=== PATIENT | female | born 1940 | race Caucasian/White ===

== ENCOUNTER 2018-09-25 21:07 | Observation (INO) ==
[2018-09-25] MEDS ORDERED: Isovue-370 500 ML BOTTLE IVP ONE (21:52)
[2018-09-25] MEDS ORDERED: Ondansetron 4 MG/2 ML VIAL IVP ONE (22:01)
[2018-09-25] MEDS ORDERED: *HR* FentaNYL (PF) 100 MCG/2 ML VIAL IVP ONE (22:01)
[2018-09-25] MEDS ORDERED: 0.9 % Sodium Chloride 1,000 ML IVC ONE (22:01)
[2018-09-25 22:05] LABS: Bilirubin,Urine Small (Negative); Blood,Urine Negative (Negative); Clarity,Urine Clear (Clear); Color,Urine Dark Yellow (Yellow); Glucose,Urine (UA) Normal (Normal); Ketones,Urine Trace mg/dL (Negative); Leukocyte Esterase,Urine Trace (Negative); Nitrite,Urine Negative (Negative); PH,Urine 6.5 pH Units (5.0-8.0); Protein,Urine Negative (Neg-Trace); Specific Gravity,Urine 1.022 (1.010-1.025); Urobilinogen,Urine Normal (Normal)
[2018-09-25 22:06] LABS: Bacteria,Urine None Seen per hpf (None-Few); Hyaline Casts,Urine None Seen per lpf (None-Few); RBC,Urine 0-3 per hpf (0-3); Squamous Epithelial Cell,Urine Many per lpf (None-Few); WBC,Urine 0-3 per hpf (0-3)
[2018-09-25 22:42] LABS: Basophils % 0.3 %; Hematocrit 40.9 % (35.3-44.9); Immature Granulocytes % 0.5 % (0-4); Lymphocytes % 6.8 %; Mean Corpuscular HGB Conc 34.2 g/dL (31.6-35.5); Mean Corpuscular Hemoglobin 30.7 pg (28.0-33.3); Mean Corpuscular Volume 89.7 fL (83.0-100.0); Mean Platelet Volume 8.5 fL (9.4-12.4); Monocytes # 0.7 K/mcL (0.0-1.3); Monocytes % 5.1 %; Neutrophils # 12.6 K/mcL (1.6-8.9); Platelet Count 357 K/mcL (140-400); Red Blood Count 4.56 M/mcL (3.82-4.97); Red Cell Distribution Width 13.4 % (11.5-14.5); Segmented Neutrophils % 87.3 %
--- NOTE | 2018-09-25 22:55 | Emergency Department Note ---
Disposition Clinical Impression: Ascites Qualifiers: Ascites type: other type Qualified Code(s): R18.8 - Other ascites Abdominal pain Qualifiers: Abdominal location: generalized Qualified Code(s): R10.84 - Generalized abdominal pain Disposition: Admitted As Inpatient Condition: Fair Forms: ED Satisfaction Letter, Work/School Release Time of Disposition: 00:24 Abdominal Pain HPI - General Chief Complaint: ED Abdominal Pain Stated Complaint: ABD Pain Time Seen by Provider: 09/25/18 21:41 Source: patient Mode of arrival: ambulatory Limitations: no limitations Nursing Notes Reviewed: Yes Vital Signs Reviewed: Yes - History of Present Illness HPI Narrative: 78-year-old female presented to the emergency department with right upper quadrant abdominal pain. Patient states partially 10 days ago she had a cholecystectomy she is not having pain prior to the surgery after surgery she was having horrible pain. His been seen multiple times by her primary care as well as urgent care they said they have not found anything. She was recently admitted approximately one week ago for this pain diagnosed with postoperative constipation told use MiraLAX and follow-up with them as needed. Patient states she still has tenderness 10 right upper quadrant pain nothing seems to make it better. They said he has been nauseous and has been vomiting up bilious nonbloody emesis. There is been no fevers. She did have urinary tract infecti on after the surgery the but took antibiotics and has sense relieved itself. Patient otherwise not having any other complaints at this time. She does note some mild chest pain and right shoulder pain but has been again since the surgery nothing is changed. There is no shortness of breath. Pain Scale: 10 - Related Data Home Medications Medication Instructions Recorded Confirmed Aspirin 81 mg PO DAILY 07/08/18 09/25/18 Potassium Chloride [Klor-Con] 20 meq PO DAILY 07/08/18 09/25/18 amLODIPine [Norvasc] 5 mg PO DAILY 07/08/18 09/25/18 Triamterene/HCTZ 37.5/25mg 1 tab PO DAILY 09/15/18 09/25/18 [Dyazide] hydrOXYzine pamoate [Hydroxyzine 25 mg PO HS 09/15/18 09/25/18 Pamoate] Calcium Carb/Mag Oxide/Zinc Ox 1 tab PO DAILY 09/20/18 09/25/18 [Lcckhmz-Ayclknima-Osiw Caplet] OxyCODONE/APAP 5/325 [Percocet 1 each PO Q6HR PRN 09/20/18 09/25/18 5/325 MG] Vitamin A 10,000 unit PO DAILY 09/20/18 09/25/18 Vitamin B Complex [B Complex] 1 tab PO DAILY 09/20/18 09/25/18 Previous Rx's Medication Instructions Recorded Cefdinir [Omnicef] 300 mg PO BID #8 capsule 09/21/18 Lovastatin [Mevacor] 40 mg PO HS #30 tablet 09/21/18 Phenazopyridine [Pyridium] 100 mg PO TID PRN #15 tablet 09/21/18 Polyethylene Glycol 3350 [MiraLAX] 17 gm PO DAILY #30 powd.pack 09/21/18 Allergies Allergy/AdvReac Type Severity Reaction Status Date / Time enalapril Allergy Hives Verified 09/25/18 22:31 prednisone AdvReac Palpitation Verified 09/25/18 22:31 s All systems ED: reviewed and negative except as stated. Review of Systems: As Per HPI Abdominal Pain PMH - Past Medical History Medical history: Reports: asthma, hypertension, renal disease Female Surgical History: Reports: cholecystectomy Psychiatric history: Reports: anxiety - Social History Smoking status: Never smoker Alcohol use: Reports: none Drug use: Reports: none Physical Exam - General Limitations: no limitations General appearance: alert, in no apparent distress - Head Head exam: atraumatic, normocephalic, normal inspection - Eye Eye exam: Present: normal appearance, PERRL, EOMI - ENT ENT exam: normal exam, normal oropharynx, mucous membranes moist - Neck Neck exam: Present: normal inspection, full ROM, trachea midline - Chest Chest inspection: Present: normal inspection, symmetric chest wall rise - Respiratory Respiratory exam: Present: normal lung sounds bilaterally - Cardiovascular Cardiovascular exam: Present: regular rate, normal rhythm, normal heart sounds - Abdominal Exam Abdominal exam: Present: soft, tenderness, normal bowel sounds. Absent: distention, guarding, rebound, rigidity Abdominal tenderness: Present: RUQ, diffuse, moderate - Extremities Exam Extremities exam: Present: normal inspection, full ROM. Absent: tenderness, pedal edema - Back Exam Back exam: Present: normal inspection, full ROM. Absent: tenderness, CVA tenderness (R), CVA tenderness (L) - Neurological Exam Neurological exam: Present: alert, oriented X3 - Skin Skin exam: Present: warm, dry, intact, normal color Course Course Narrative: We have basic labs. CBC BMP, troponin, lactate, lipase were all ordered. Also ordered troponin and EKG and chest x-ray. Also will get CT abdomen and pelvis with contrast for further evaluation the abdomen. We will give pain medication of IV fluids. Patient okay with that plan. Vital Signs Temperature 98.2 F 09/25/18 21:34 Pulse Rate 82 09/25/18 21:34 Respiratory Rate 20 09/25/18 21:34 Blood Pressure 163/73 09/25/18 21:34 O2 Sat by Pulse Oximetry 96 09/25/18 21:34 Temperature 98.2 F 09/25/18 21:34 Pulse Rate 73 09/25/18 22:36 Respiratory Rate 20 09/25/18 22:36 Blood Pressure 128/62 09/25/18 22:36 O2 Sat by Pulse Oximetry 94 09/25/18 22:36 Oxygen Delivery Oxygen Delivery Room Air Abdominal Pain - MDM Narrative Medical decision making narrative: Patient still having pain while here. Labs came back with elevated alkaline phosphatase as well as elevated bilirubin and a leukocytosis with left shift. Patient is not having any fevers. Urinalysis was otherwise normal. CT did show ascites in the abdomen unknown whether or not this could be a bile leak as a is increased from previous scan done 09/19 and also more seen then 09/16. Due to this finding I felt that consult and was surgery was necessary. At this time I spoke with Dr. Valladares the on-call surgeon who recommended admission to their service. Patient is admitted to the surgical service and stable condition. Chest X-Ray 09/25/18 21:54 IMPRESSION: No acute cardiopulmonary process D/ / Shantanu Bob / Shantanu Bob Interpreting Provider: Shantanu Bob - Medical Records Medical records reviewed: Yes I reviewed the patient's medical records. - Lab Data Lab results reviewed: Yes I reviewed the patient's lab results. Result diagrams: 09/25/18 22:23 09/25/18 22:23 Lab Results 09/25/18 09/25/18 09/25/18 Range/Units 21:56 22:23 22:23 WBC 14.4 H (4.3-11.1) K/mcL RBC 4.56 (3.82-4.97) M/mcL Hgb 14.0 (11.5-15.4) g/dL Hct 40.9 (35.3-44.9) % MCV 89.7 (83.0-100.0) fL MCH 30.7 (28.0-33.3) pg MCHC 34.2 (31.6-35.5) g/dL RDW 13.4 (11.5-14.5) % Plt Count 357 (140-400) K/mcL MPV 8.5 L (9.4-12.4) fL Immature Gran % 0.5 (0-4) % Seg Neutrophils % 87.3 % Lymphocytes % 6.8 % Monocytes % 5.1 % Eosinophils % 0.0 % Basophils % 0.3 % Neutrophils # 12.6 H (1.6-8.9) K/mcL Lymphocytes # 1.0 (0.6-4.6) K/mcL Monocytes # 0.7 (0.0-1.3) K/mcL Eosinophils # 0.0 (0.0-0.6) K/mcL Basophils # 0.0 (0.0-0.2) K/mcL Sodium 132 L (136-145) mEq/L Potassium 4.2 (3.5-5.1) mEq/L Chloride 97 L (98-107) mEq/L Carbon Dioxide 25 (23-29) mEq/L BUN 20 (8-23) mg/dL Creatinine 0.75 (0.60-1.20) mg/dL Est GFR ( Amer) > 60 (> 60) Est GFR (Non-Af Amer) > 60 (> 60) BUN/Creatinine Ratio 27 H (6-26) Glucose 163 H (70-105) mg/dL Calculated Osmolality 280 (280-300) Lactic Acid (0.5-2.2) mmol/L Calcium 9.8 (8.6-10.3) mg/dL Total Bilirubin 1.7 H (0.3-1.0) mg/dL AST 34 (13-39) Units/L ALT 39 (7-52) Units/L Alkaline Phosphatase 306 H (34-104) Units/L Troponin I < 0.03 (< 0.04) ng/mL Serum Total Protein 6.8 (6.4-8.9) g/dL Albumin 3.7 (3.5-5.7) g/dL Globulin 3.1 (2.4-3.5) g/dL Albumin/Globulin Ratio 1.2 (1.1-2.2) Lipase 25 (11-82) Units/L Urine Color Dark Yellow (Yellow) Urine Clarity Clear (Clear) Urine pH 6.5 (5.0-8.0) pH Units Ur Specific [place] 1.022 (1.010-1.025) Urine Protein Negative (Neg-Trace) mg/dL Urine Glucose (UA) Normal (Normal) mg/dL Urine Ketones Trace H (Negative) mg/dL Urine Blood Negative (Negative) Urine Nitrite Negative (Negative) Urine Bilirubin Small H (Negative) Urine Urobilinogen Normal (Normal) mg/dL Ur Leukocyte Esterase Trace H (Negative) Urine Microscopic RBC 0-3 (0-3) per hpf Urine Microscopic WBC 0-3 (0-3) per hpf Ur Squamous Epith Cells Many H (None-Few) per lpf Urine Bacteria None Seen (None-Few) per hpf Hyaline Casts None Seen (None-Few) per lpf Ur Culture Indicated? NO. A (NO) 09/25/18 Range/Units 22:23 WBC (4.3-11.1) K/mcL RBC (3.82-4.97) M/mcL Hgb (11.5-15.4) g/dL Hct (35.3-44.9) % MCV (83.0-100.0) fL MCH (28.0-33.3) pg MCHC (31.6-35.5) g/dL RDW (11.5-14.5) % Plt Count (140-400) K/mcL MPV (9.4-12.4) fL Immature Gran % (0-4) % Seg Neutrophils % % Lymphocytes % % Monocytes % % Eosinophils % % Basophils % % Neutrophils # (1.6-8.9) K/mcL Lymphocytes # (0.6-4.6) K/mcL Monocytes # (0.0-1.3) K/mcL Eosinophils # (0.0-0.6) K/mcL Basophils # (0.0-0.2) K/mcL Sodium (136-145) mEq/L Potassium (3.5-5.1) mEq/L Chloride (98-107) mEq/L Carbon Dioxide (23-29) mEq/L BUN (8-23) mg/dL Creatinine (0.60-1.20) mg/dL Est GFR ( Amer) (> 60) Est GFR (Non-Af Amer) (> 60) BUN/Creatinine Ratio (6-26) Glucose (70-105) mg/dL Calculated Osmolality (280-300) Lactic Acid 0.8 (0.5-2.2) mmol/L Calcium (8.6-10.3) mg/dL Total Bilirubin (0.3-1.0) mg/dL AST (13-39) Units/L ALT (7-52) Units/L Alkaline Phosphatase (34-104) Units/L Troponin I (< 0.04) ng/mL Serum Total Protein (6.4-8.9) g/dL Albumin (3.5-5.7) g/dL Globulin (2.4-3.5) g/dL Albumin/Globulin Ratio (1.1-2.2) Lipase (11-82) Units/L Urine Color (Yellow) Urine Clarity (Clear) Urine pH (5.0-8.0) pH Units Ur Specific [place] (1.010-1.025) Urine Protein (Neg-Trace) mg/dL Urine Glucose (UA) (Normal) mg/dL Urine Ketones (Negative) mg/dL Urine Blood (Negative) Urine Nitrite (Negative) Urine Bilirubin (Negative) Urine Urobilinogen (Normal) mg/dL Ur Leukocyte Esterase (Negative) Urine Microscopic RBC (0-3) per hpf Urine Microscopic WBC (0-3) per hpf Ur Squamous Epith Cells (None-Few) per lpf Urine Bacteria (None-Few) per hpf Hyaline Casts (None-Few) per lpf Ur Culture Indicated? (NO) - Radiology Data Radiology results reviewed: Yes I reviewed the patient's radiology results. - EKG Data EKG attestation: Yes I reviewed and interpreted this EKG. EKG results narrative: EKG done at 20 20 a review by myself and attending shows sinus rhythm at a rate 78, PA interval 164, QRS 97, QTC 424. There is no acute ST changes no acute T- wave changes no other signs of ischemia. No signs of hypertrophy, heart rate, heart block. No WPW/Brugada/HOCM. EKG unchanged when compared with old one done 09/20/18
[2018-09-25 22:58] LABS: Alanine Aminotransferase 39 Units/L (7-52); Albumin 3.7 g/dL (3.5-5.7); Albumin/Globulin Ratio 1.2 (1.1-2.2); Alkaline Phosphatase 306 Units/L (34-104); Aspartate Amino Transferase 34 Units/L (13-39); BUN/Creatinine Ratio 27 (6-26); Bilirubin,Total 1.7 mg/dL (0.3-1.0); Blood Urea Nitrogen 20 mg/dL (8-23); Calcium 9.8 mg/dL (8.6-10.3); Carbon Dioxide 25 mEq/L (23-29); Chloride 97 mEq/L (98-107); Globulin 3.1 g/dL (2.4-3.5); Glucose 163 mg/dL (70-105); Lipase 25 Units/L (11-82); Osmolality,Calculated 280 (280-300); Potassium 4.2 mEq/L (3.5-5.1); Sodium 132 mEq/L (136-145); Total Protein 6.8 g/dL (6.4-8.9); Troponin I < 0.03 ng/mL (< 0.04); eGFR For Non-African Americans > 60 (> 60)
[2018-09-25] MEDS ORDERED: *HR* HYDROmorphone (PF) 1 MG/ML SYRINGE IVP ONE (23:26)
--- NOTE | 2018-09-26 00:28 | Emergency Department Note ---
Disposition Clinical Impression: Ascites Qualifiers: Ascites type: other type Qualified Code(s): R18.8 - Other ascites Abdominal pain Qualifiers: Abdominal location: generalized Qualified Code(s): R10.84 - Generalized abdominal pain Disposition: Admitted As Inpatient Condition: Fair General Adult HPI - General Chief complaint: ED Abdominal Pain Stated complaint: ABD Pain Time Seen by Provider: 09/25/18 21:41 Source: patient Mode of arrival: ambulatory Limitations: no limitations Nursing Notes Reviewed: Yes Vital Signs Reviewed: Yes - History of Present Illness Pain Scale: 10 - Related Data Home Medications Medication Instructions Recorded Confirmed Aspirin 81 mg PO DAILY 07/08/18 09/25/18 Potassium Chloride [Klor-Con] 20 meq PO DAILY 07/08/18 09/25/18 amLODIPine [Norvasc] 5 mg PO DAILY 07/08/18 09/25/18 Triamterene/HCTZ 37.5/25mg 1 tab PO DAILY 09/15/18 09/25/18 [Dyazide] hydrOXYzine pamoate [Hydroxyzine 25 mg PO HS 09/15/18 09/25/18 Pamoate] Calcium Carb/Mag Oxide/Zinc Ox 1 tab PO DAILY 09/20/18 09/25/18 [Sddtiwx-Gwocyvcdl-Fpoe Caplet] OxyCODONE/APAP 5/325 [Percocet 1 each PO Q6HR PRN 09/20/18 09/25/18 5/325 MG] Vitamin A 10,000 unit PO DAILY 09/20/18 09/25/18 Vitamin B Complex [B Complex] 1 tab PO DAILY 09/20/18 09/25/18 Previous Rx's Medication Instructions Recorded Cefdinir [Omnicef] 300 mg PO BID #8 capsule 09/21/18 Lovastatin [Mevacor] 40 mg PO HS #30 tablet 09/21/18 Phenazopyridine [Pyridium] 100 mg PO TID PRN #15 tablet 09/21/18 Polyethylene Glycol 3350 [MiraLAX] 17 gm PO DAILY #30 powd.pack 09/21/18 Allergies Allergy/AdvReac Type Severity Reaction Status Date / Time enalapril Allergy Hives Verified 09/25/18 22:31 prednisone AdvReac Palpitation Verified 09/25/18 22:31 s Past Medical History - Past Medical History Medical history: Reports: asthma, hypertension, renal disease Psychiatric history: Reports: anxiety - Social History Smoking Status: Never smoker Smokeless Tobacco Status: No Alcohol use: Reports: none Drug use: Reports: none Physical Exam - General Limitations: no limitations General appearance: alert, in no apparent distress Course Vital Signs Temperature 98.2 F 09/25/18 21:34 Pulse Rate 82 09/25/18 21:34 Respiratory Rate 20 09/25/18 21:34 Blood Pressure 163/73 09/25/18 21:34 O2 Sat by Pulse Oximetry 96 09/25/18 21:34 Temperature 98.2 F 09/25/18 21:34 Pulse Rate 92 09/26/18 00:00 Respiratory Rate 20 09/26/18 00:00 Blood Pressure 153/72 09/26/18 00:00 O2 Sat by Pulse Oximetry 93 09/26/18 00:00 Oxygen Delivery Oxygen Delivery Room Air Medical Decision Making - Medical Records Medical records reviewed: Yes I reviewed the patient's medical records. - Lab Data Lab results reviewed: Yes I reviewed the patient's lab results. Result diagrams: 09/25/18 22:23 09/25/18 22:23 Lab Results 09/25/18 09/25/18 09/25/18 Range/Units 21:56 22:23 22:23 WBC 14.4 H (4.3-11.1) K/mcL RBC 4.56 (3.82-4.97) M/mcL Hgb 14.0 (11.5-15.4) g/dL Hct 40.9 (35.3-44.9) % MCV 89.7 (83.0-100.0) fL MCH 30.7 (28.0-33.3) pg MCHC 34.2 (31.6-35.5) g/dL RDW 13.4 (11.5-14.5) % Plt Count 357 (140-400) K/mcL MPV 8.5 L (9.4-12.4) fL Immature Gran % 0.5 (0-4) % Seg Neutrophils % 87.3 % Lymphocytes % 6.8 % Monocytes % 5.1 % Eosinophils % 0.0 % Basophils % 0.3 % Neutrophils # 12.6 H (1.6-8.9) K/mcL Lymphocytes # 1.0 (0.6-4.6) K/mcL Monocytes # 0.7 (0.0-1.3) K/mcL Eosinophils # 0.0 (0.0-0.6) K/mcL Basophils # 0.0 (0.0-0.2) K/mcL Sodium 132 L (136-145) mEq/L Potassium 4.2 (3.5-5.1) mEq/L Chloride 97 L (98-107) mEq/L Carbon Dioxide 25 (23-29) mEq/L BUN 20 (8-23) mg/dL Creatinine 0.75 (0.60-1.20) mg/dL Est GFR ( Amer) > 60 (> 60) Est GFR (Non-Af Amer) > 60 (> 60) BUN/Creatinine Ratio 27 H (6-26) Glucose 163 H (70-105) mg/dL Calculated Osmolality 280 (280-300) Lactic Acid (0.5-2.2) mmol/L Calcium 9.8 (8.6-10.3) mg/dL Total Bilirubin 1.7 H (0.3-1.0) mg/dL AST 34 (13-39) Units/L ALT 39 (7-52) Units/L Alkaline Phosphatase 306 H (34-104) Units/L Troponin I < 0.03 (< 0.04) ng/mL Serum Total Protein 6.8 (6.4-8.9) g/dL Albumin 3.7 (3.5-5.7) g/dL Globulin 3.1 (2.4-3.5) g/dL Albumin/Globulin Ratio 1.2 (1.1-2.2) Lipase 25 (11-82) Units/L Urine Color Dark Yellow (Yellow) Urine Clarity Clear (Clear) Urine pH 6.5 (5.0-8.0) pH Units Ur Specific [place] 1.022 (1.010-1.025) Urine Protein Negative (Neg-Trace) mg/dL Urine Glucose (UA) Normal (Normal) mg/dL Urine Ketones Trace H (Negative) mg/dL Urine Blood Negative (Negative) Urine Nitrite Negative (Negative) Urine Bilirubin Small H (Negative) Urine Urobilinogen Normal (Normal) mg/dL Ur Leukocyte Esterase Trace H (Negative) Urine Microscopic RBC 0-3 (0-3) per hpf Urine Microscopic WBC 0-3 (0-3) per hpf Ur Squamous Epith Cells Many H (None-Few) per lpf Urine Bacteria None Seen (None-Few) per hpf Hyaline Casts None Seen (None-Few) per lpf Ur Culture Indicated? NO. A (NO) 09/25/18 Range/Units 22:23 WBC (4.3-11.1) K/mcL RBC (3.82-4.97) M/mcL Hgb (11.5-15.4) g/dL Hct (35.3-44.9) % MCV (83.0-100.0) fL MCH (28.0-33.3) pg MCHC (31.6-35.5) g/dL RDW (11.5-14.5) % Plt Count (140-400) K/mcL MPV (9.4-12.4) fL Immature Gran % (0-4) % Seg Neutrophils % % Lymphocytes % % Monocytes % % Eosinophils % % Basophils % % Neutrophils # (1.6-8.9) K/mcL Lymphocytes # (0.6-4.6) K/mcL Monocytes # (0.0-1.3) K/mcL Eosinophils # (0.0-0.6) K/mcL Basophils # (0.0-0.2) K/mcL Sodium (136-145) mEq/L Potassium (3.5-5.1) mEq/L Chloride (98-107) mEq/L Carbon Dioxide (23-29) mEq/L BUN (8-23) mg/dL Creatinine (0.60-1.20) mg/dL Est GFR ( Amer) (> 60) Est GFR (Non-Af Amer) (> 60) BUN/Creatinine Ratio (6-26) Glucose (70-105) mg/dL Calculated Osmolality (280-300) Lactic Acid 0.8 (0.5-2.2) mmol/L Calcium (8.6-10.3) mg/dL Total Bilirubin (0.3-1.0) mg/dL AST (13-39) Units/L ALT (7-52) Units/L Alkaline Phosphatase (34-104) Units/L Troponin I (< 0.04) ng/mL Serum Total Protein (6.4-8.9) g/dL Albumin (3.5-5.7) g/dL Globulin (2.4-3.5) g/dL Albumin/Globulin Ratio (1.1-2.2) Lipase (11-82) Units/L Urine Color (Yellow) Urine Clarity (Clear) Urine pH (5.0-8.0) pH Units Ur Specific [place] (1.010-1.025) Urine Protein (Neg-Trace) mg/dL Urine Glucose (UA) (Normal) mg/dL Urine Ketones (Negative) mg/dL Urine Blood (Negative) Urine Nitrite (Negative) Urine Bilirubin (Negative) Urine Urobilinogen (Normal) mg/dL Ur Leukocyte Esterase (Negative) Urine Microscopic RBC (0-3) per hpf Urine Microscopic WBC (0-3) per hpf Ur Squamous Epith Cells (None-Few) per lpf Urine Bacteria (None-Few) per hpf Hyaline Casts (None-Few) per lpf Ur Culture Indicated? (NO) - Radiology Data Radiology results reviewed: Yes I reviewed the patient's radiology results. Chest X-Ray 09/25/18 21:54 IMPRESSION: No acute cardiopulmonary process D/ / Shantanu Bob / Shantanu Bob Interpreting Provider: Shantanu Bob Chest X-Ray 09/25/18 21:54 IMPRESSION: No acute cardiopulmonary process D/ / Shantanu Bob / Shantanu Bob Interpreting Provider: Shantanu Bob For some reason the patient's CT report will not transferred to this note. The report was reviewed by me. - EKG Data EKG #1 EKG attestation: Yes I reviewed and interpreted this EKG. EKG results narrative: EKG shows normal sinus rhythm with ventricular rate of 78. No ST segment elevation or depression. No arrhythmia or ectopy. Normal EKG. Attestation Statement - Attestation Attestation: I, Ismael Self MD, personally evaluated this patient and discussed their management with the resident physician. I reviewed the resident's note and agree with the documented findings, medical decision making, and plan of care. 78-year-old female who had a laparoscopic cholecystectomy 10 days ago presents to the emergency department with a complaint of severe upper abdominal pain ever since she had the surgery. The surgery was done as an outpatient. She was seen at [place] emergency department during the night the night of the surgery. She apparently was seen there on another visit and was seen here within the past week. She was admitted to the hospital at that time. She states it told her she was constipated. She took some laxatives and has had a bowel movement but states it did not affect the pain and she is back tonight complaining of severe progressively worsening upper abdominal pain. On examination patient is a well-developed well-nourished elderly female in no acute distress. She is alert and oriented 3. There is no cyanosis or diaphoresis. Breath sounds are clear and equal bilaterally. Heart regular rate and rhythm. Abdomen is soft with present bowel sounds. There is moderate upper abdominal tenderness. Labs reviewed. EKG normal. Chest x-ray negative. CT the abdomen and pelvis shows increased abdominal and pelvic ascites compared to previous scan, consider bile leak. The surgeon security operations manager, Dr. Valladares, was consulted and accepted admission of the patient to the surgical service.
[2018-09-26] MEDS: Piperacillin/Tazobactam 3.375 GM in 0.9 % Sodium Chloride Mini Bag 100 ML IVPB SCH ×3 (01:38→17:16)
[2018-09-26] MEDS: OXYCODONE Oral CONC 10 MG/0.5 ML ORAL.SYG SL PRN ×3 (01:42→10:13)
[2018-09-26] MEDS: Ondansetron 4 MG/2 ML VIAL IVP PRN ×2 (01:43→10:14)
[2018-09-26] MEDS: 0.9 % Sodium Chloride 1,000 ML IVC SCH ×2 (01:43→17:17)
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
[2018-09-26] MEDS ORDERED: Naloxone 0.4 MG/ML INJ IVP PRN ×2 (09:49→15:47)
--- NOTE | 2018-09-26 13:17 | Anesthesia Evaluation PreOp ---
Date of Encounter: 09/26/18 Time of Encounter: 13:17 - Past History Planned Operation: Abdominal washout re: Bile leak POD#11 Cardiac History: HTN, Hyperlipidemia Pulmonary History: Asthma OFFICE MESSENGER HELPER History: Denies Any Significant HX Other Medical History: Thyroid (Hypothyroidism DENIES) Anesthesia History: No Prior Anesthetic Complications, Past Anesthesia (Lap Debra 09/15/2018) Alcohol Use: none Drug use: none Medications and Allergies Aspirin 81 mg PO DAILY 07/08/18 [History] Potassium Chloride [Klor-Con] 20 meq PO DAILY 07/08/18 [History] amLODIPine [Norvasc] 5 mg PO DAILY 07/08/18 [History] Triamterene/HCTZ 37.5/25mg [Dyazide] 1 tab PO DAILY 09/15/18 [History] hydrOXYzine pamoate [Hydroxyzine Pamoate] 25 mg PO HS 09/15/18 [History] Calcium Carb/Mag Oxide/Zinc Ox [Rglgxdj-Cqjtrjqku-Bxup Caplet] 1 tab PO DAILY 09/20/18 [History] Vitamin A 10,000 unit PO DAILY 09/20/18 [History] Vitamin B Complex [B Complex] 1 tab PO DAILY 09/20/18 [History] Lovastatin [Mevacor] 40 mg PO HS #30 tablet 09/21/18 [Rx] Phenazopyridine [Pyridium] 100 mg PO TID PRN #15 tablet 09/21/18 [Rx] Polyethylene Glycol 3350 [MiraLAX] 17 gm PO DAILY #30 powd.pack 09/21/18 [Rx] Hydrocodone/Acetaminophen [[place] 5-325 Tablet] 1 tab PO Q4H 09/26/18 [History] Allergy/AdvReac Type Severity Reaction Status Date / Time enalapril Allergy Hives Verified 09/25/18 22:31 prednisone AdvReac Palpitation Verified 09/25/18 22:31 s - Meds/Allergy Pre-op Review Medications Reviewed: Yes Allergies Reviewed: Yes Beta Blockers on Current Med List: No Anesthesia Results - Labs 09/25/18 22:23 09/25/18 22:23 ECHO 09/20/2018 EV/EV echocardiogram Impressions: LVEF 60-65%. Normal LV chamber size, wall thickness and function. Mild left ventricular diastolic dysfunction. Normal right ventricular structure and function. No evidence of pulmonary hypertension. No significant valvular dysfunction. Left Ventricular Wall Motion: Rest Echo Findings All wall segments showed normal motion. - Imaging EKG: pending Anesthesia Exam Vital Signs Temp Pulse Resp BP Pulse Ox 09/26/18 11:14 98.1 F 75 16 146/71 95 09/26/18 09:10 98.2 F 75 18 150/75 95 09/26/18 03:00 97.7 F 72 16 162/73 95 09/26/18 00:00 92 20 153/72 93 09/25/18 22:36 73 20 128/62 94 09/25/18 22:34 93 09/25/18 21:34 98.2 F 82 20 163/73 96 Intake and Output 09/25/18 09/26/18 09/26/18 23:59 07:59 15:59 Intake Total 1100 / 1100 Output Total 0 / 150 150 / 150 Balance 1100 / 950 -150 / 950 Intake: IV Fluids 1100 / 1100 0.9 % Sodium Chloride 1,000 ML 1000 / 1000 @ 999 mls/hr IVC .Q1H1M ONE Rx# :[id number] Zosyn 3.375 GM In 0.9 % Sodium 100 / 100 Chloride (Mini-Bag +) 100 ML @ 25 mls/hr IVPB Q6H MARCELLA Rx#: [id number] Oral 0 / 0 Output: Urine 0 / 150 150 / 150 Other: Stool Characteristics Normal for Patient Stool Color Brown # Voids 1 # Bowel Movements 0 0 Weight 69.853 kg Blood Glucose* 112 103 Height: 5'7" Weight: 154# BMI = 24 NPO (# of Hours): MNOc - HEENT Pupil (Motor): Pupils equal, EOMI Mallampati: II Teeth: Edentulous (upper) Oral Opening: Greater than 3 - OFFICE MESSENGER HELPER LOC: Oriented OFFICE MESSENGER HELPER Motor: Normal RUE, Normal LUE, Normal RLE, Normal LLE, Normal Face OFFICE MESSENGER HELPER Sensory: Normal: RUE, LUE, RLE, LLE, Face - Cardiac Rhythm: Regular Murmur: None - Pulmonary Breath Sounds: bilateral Clear Respiratory Effort: Symmetrical Anesthesia Assess/Plan ASA Score: 3 Level of consciousness: Cooperative, Oriented, Tranquil Anesthetic Plan: General Monitoring Plan: Standard Monitors Anes Supervising Prov Stmt: Pt seen/evaluated, R&B Discussed questions answered and consent obtained. Shiloh Roa MD
[2018-09-26] MEDS ORDERED: CefOXitin 1,000 MG VIAL ONE ×2 (13:36→14:45)
[2018-09-26] MEDS ORDERED: Acetaminophen IV 1,000 MG/100 ML INFUS..BTL ONE (13:41)
[2018-09-26] MEDS ORDERED: Famotidine 20 MG/2 ML VIAL ONE (13:41)
[2018-09-26] MEDS ORDERED: *HR* OxyCODONE Immed Rel 5 MG TABLET PO PRN (13:43)
[2018-09-26] MEDS ORDERED: *HR* Promethazine 25 MG/ML VIAL IVP PRN (13:43)
[2018-09-26] MEDS ORDERED: *HR* HYDROmorphone (PF) 1 MG/ML SYRINGE IVP PRN (13:43)
[2018-09-26] MEDS ORDERED: *HR* Labetalol 20 MG/4 ML SYRINGE IVP PRN ×2 (13:43→15:47)
[2018-09-26] MEDS ORDERED: *HR* HYDROmorphone 2 MG TABLET PO PRN (13:43)
[2018-09-26] MEDS ORDERED: *HR* Rocuronium Bromide 50 MG/5 ML VIAL ONE (14:28)
[2018-09-26] MEDS ORDERED: Lidocaine -MPF 2% 2 ML VIAL ONE (14:28)
[2018-09-26] MEDS ORDERED: Dexamethasone 4 MG/ML VIAL ONE (14:28)
[2018-09-26] MEDS ORDERED: Lidocaine -MPF 4% 5 ML AMPUL ONE (14:28)
[2018-09-26] MEDS ORDERED: Ondansetron 4 MG/2 ML VIAL ONE (14:28)
[2018-09-26] MEDS ORDERED: *HR* Propofol 200 MG/20 ML VIAL IVP ONE (14:28)
[2018-09-26] MEDS ORDERED: *HR* FentaNYL (PF) 100 MCG/2 ML VIAL ONE ×2 (14:28)
--- NOTE | 2018-09-26 15:14 | Operative Note ---
Date of procedure: 09/26/18 Pre-op diagnosis: Bile ascites Post-op diagnosis: same Procedure: #1 laparoscopic drainage of bile ascites with drain placement #2 closure of bile leak Anesthesia: DINESH Surgeon: Oziel Valladares Was there an child center assistant present: No Estimated blood loss (cc): 20 Specimen: None Condition: stable Disposition: PACU Procedure in Detail: After informed consent the patients taking major operative suite placed in supine position given adequate general endotracheal anesthesia. The abdomen is prepped and draped in sterile fashion utilizing ChloraPrep standard draping techniques. Timeout taken and the patient is identified. I made a vertical midline incision below the umbilicus and dissected down the level of fascia. The abdominal cavity visually and placed a Bloom trocar. Camera was placed into the abdomen it was immediately apparent that the patient had bile peritonitis and bile ascites. I placed an 11 trocar in the subxiphoid area and a 5 mm trocar in the right midabdomen. I suctioned 980 mL of bile from the abdomen. Once this was done I was able to dissected the acute inflammatory changes from the gallbladder fossa for cholecystectomy had performed 11 days ago. I was able to identify the cystic duct stump. This was secured with surgical clips. I was able to identify the cystic artery. This was secured with surgical clips. I was able to identify the area of bile leak. This was in the distal gallbladder fossa bed near the edge of the liver. There was clearly a leak from a very superficial block. I used electrocautery to circumferentially coagulate the tissue around the area of leak to contract the collagen fibers. This worked very well and immediately stop the bile leak. I irrigated all 4 quadrants of the abdomen with 2 L of antibiotic containing solution. All fluid was suctioned free the abdomen. I placed a #10 Masood- Lovell drain in the gallbladder fossa. There was no evidence of bile leak at the end of the procedure. Patient tolerated the procedure very well fascia was closed with 0 Nurolon and the skin was closed with skin glenys. The peritoneal fluid was turbid. It was unclear whether this was contaminated. I made this a class III wound. She will be maintained on IV antibiotics.
[2018-09-26] MEDS ORDERED: Ringers Solution, Lactated 1,000 ML ONE (15:31)
[2018-09-26] MEDS ORDERED: Ondansetron 4 MG/2 ML VIAL IVP PRN (15:47)
[2018-09-26] MEDS ORDERED: OXYCODONE Oral CONC 10 MG/0.5 ML ORAL.SYG SL PRN (15:47)
[2018-09-26] MEDS ORDERED: Piperacillin/Tazobactam 3.375 GM in 0.9 % Sodium Chloride Mini Bag 100 ML IVPB SCH (16:00)
--- NOTE | 2018-09-26 16:14 | Anesthesia Evaluation Post Op ---
Date of Encounter: 09/26/18 Time of Encounter: 15:36 - Vital Signs Vital Signs: Vital Signs Temp Pulse Resp BP Pulse Ox 09/26/18 15:41 99.3 F 72 13 141/57 94 09/26/18 15:31 75 17 138/60 96 09/26/18 15:21 77 12 135/57 95 09/26/18 15:11 98.8 F 72 12 144/52 97 09/26/18 11:14 98.1 F 75 16 146/71 95 09/26/18 09:10 98.2 F 75 18 150/75 95 09/26/18 03:00 97.7 F 72 16 162/73 95 09/26/18 00:00 92 20 153/72 93 09/25/18 22:36 73 20 128/62 94 09/25/18 22:34 93 09/25/18 21:34 98.2 F 82 20 163/73 96 Intake and Output 09/26/18 09/26/18 09/26/18 07:59 15:59 23:59 Intake Total 1100 / 1100 Output Total 0 / 1205 1205 / 1205 Balance 1100 / -105 -1205 / -105 Intake: IV Fluids 1100 / 1100 0.9 % Sodium Chloride 1,000 ML 1000 / 1000 @ 999 mls/hr IVC .Q1H1M ONE Rx# :[id number] Zosyn 3.375 GM In 0.9 % Sodium 100 / 100 Chloride (Mini-Bag +) 100 ML @ 25 mls/hr IVPB Q6H MARCELLA Rx#: [id number] Oral 0 / 0 Output: Urine 0 / 150 150 / 150 Estimated Blood Loss 25 / 25 Wound Drainage 1030 / 1030 Other: Meal npo # Voids 1 # Bowel Movements 0 0 Blood Glucose* 112 103 - Lungs Lungs: Clear Ascult./Percussion - Airway Airway: Non-obstructed - Cardiovascular Regular Rate - Mental Status Mental Status: Alert & Oriented, Answers Appropriately - Pain Pain Scale: 0 Pain Scale used: Numeric (1 - 10) - Nausea Vomiting Nausea Vomiting: Not Present - Hydration Hydration: Ice chips - Discharge PostOp Status: Transfer Patient to floor Anes Supervising Prov Stmt: Pt seen/evaluated, VSS and has met criteria for discharge to floor. - MD Crispin
--- NOTE | 2018-09-26 16:48 | Electrocardiograph Report ---
[place] [id number] Test Date: 2018-09-19 Pat Name: Gale Ferrari Department: EXAM3 Room: 3A11 Gender: F Gas Tester: : 1940 Requested By: Chilo Yan Order Number: [id number] Reading MD: Steve Thompson Measurements Intervals [place] Rate: 75 P: 63 LA: 152 QRS: 26 QRSD: 98 T: 39 QT: 381 QTc: 426 Interpretive Statements Sinus rhythm RSR' in V1 or V2, probably normal variant Electronically Signed On 09-26-2018 16:47:00 EDT by Steve Thompson
[2018-09-26] MEDS: hydrOXYzine pamoate 25 MG CAPSULE PO SCH (20:54)
[2018-09-27] MEDS: Piperacillin/Tazobactam 3.375 GM in 0.9 % Sodium Chloride Mini Bag 100 ML IVPB SCH ×3 (01:19→17:08)
[2018-09-27] MEDS: 0.9 % Sodium Chloride 1,000 ML IVC SCH ×2 (06:22→19:39)
--- NOTE | 2018-09-27 07:17 | AcuteCareSurgery Progress Note ---
<Paco Smith - Last Filed: 09/27/18 09:47> Date of Encounter: 09/27/18 Time of Encounter: 07:17 - Assessment and Plan (1) Postoperative bile leak Current Visit: Yes Status: Acute Ms. Ferrari is a 78 year old female with past medical history significant for hypertension, arthritis, hypothyroidism who recently underwent laparoscopic cholecystectomy postop day #12 who presents again today complaining of right upper quadrant abdominal pain. - No sharp, crampy, right upper quadrant abdominal pain that has persisted postoperatively since day after surgery. Has progressively worsened. Associated with nausea and vomiting. - Diffuse tenderness to palpation on exam. Guarding present. Right upper quadrant tenderness specifically. No rebound tenderness, rigidity. Bowel sounds present - Leukocytosis = 14.4. ALP = 307, T bili = 1.7 - CT of abdomen and pelvis with contrast: Persistent abdominal and pelvic ascites slightly increased in amount compared to prior. Sterility of the fluid is indeterminate. Consider bile leak. Loculated areas of fluid in the mesentery could represent early infectious change - Hepatobiliary scan: Bile leak with some mild distention of the intrahepatic biliary ductal system PLAN: Patient is postoperative day #1 status post left upper drainage of bile ascites and closure of bile leak. She is progressing appropriately postoperatively - Advance diet as tolerated - Continue IV pain and nausea control - Monitor for fevers or worsening leukocytosis. Additionally monitor for continuing abdominal pain, nausea, vomiting. - Continue IV antibiotics - Please continue to monitor drain output on a daily basis - Out of bed to chair. Activity as tolerated. Subjective Patient reports: no new complaints, feels better, pain is less, tolerating a reg ular diet, voiding w/o difficulty, flatus, no bowel movement, afebrile Narrative: Patient was seen and examined this morning at bedside. She is postoperative day #1 status post laparoscopic drain of bile ascites and closure of bile leak. She currently reports no complaints. She states that she feels significantly better than she did prior to surgery. She notes that she has passed gas, but has not yet bowel movement. She is requesting something to help move her bowels. Otherwise she denies any abdominal pain, nausea, vomiting. She has been able to tolerate diet. Patient is progressing appropriately. Wound drainage = 1270 mL as of yesterday. Objective Vital Signs - Last 8 Hours Temp Pulse Resp BP Pulse Ox 09/27/18 06:27 98.4 F 73 18 117/69 95 09/27/18 03:38 97.4 F L 84 18 136/56 93 09/26/18 23:27 98.1 F 72 14 108/51 94 Intake and Output 09/26/18 09/26/18 09/27/18 15:59 23:59 07:59 Intake Total 860 / 1960 1300 / 1300 Output Total 1205 / 1895 690 / 1895 60 / 60 Balance -1205 / 65 170 / 65 1240 / 1240 Intake: IV Fluids 100 / 1200 1100 / 1100 0.9 % Sodium Chloride 1,000 ML 1000 / 1000 @ 75 mls/hr IVC .[id number] [facility] Rx #:[id number] Zosyn 3.375 GM In 0.9 % Sodium 100 / 100 100 / 100 Chloride (Mini-Bag +) 100 ML @ 25 mls/hr IVPB Q8H [facility] Rx#: [id number] Oral 760 / 760 200 / 200 Output: Urine 150 / 600 450 / 600 0 / 0 Estimated Blood Loss 25 / 25 Wound Drainage 1030 / 1270 240 / 1270 60 / 60 RLQ Abdomen 240 / 240 60 / 60 Other: Meal npo Dinner Percent of Meal Consumed 100% Stool Size Smear Stool Color Brown # Urine Diapers 1 # Bowel Movements 0 # Bowel Movement Diapers 1 Weight 71.74 kg Blood Glucose* 103 219 Patient Weight 09/27/18 23:59 Weight 71.74 kg - General physical appearance well developed, well nourished, no distress, no pain, other (This is a 78-year-old female who sitting comfortably at bedside in no acute distress) - Eyes PERRL, normal ocular movement - ENT normal mucosa, no hearing loss, atraumatic, normocephalic - Neck Neck exam: trachea midline - Respiratory normal expansion, normal respiratory effort, clear to auscultation - Cardiovascular Cardiovascular exam: Present: RRR, regular rhythm, no murmurs/rubs/gallops - Abdomen Abdomen: Present: bowel sounds present, soft, non tender. Absent: distended, guarding, rebound - Incision Incision: Present: clean and dry, intact - Integumentary no rash, no abnormal pigmentation - Psychiatric oriented to time, oriented to person, oriented to place, speech is normal, memory intact - Labs 09/27/18 07:49 04/28/19 07:49 Consult Discharge Plan - Plan Referrals: Mark Friend MD [Primary Care Provider] - <Oziel Valladares - Last Filed: 09/27/18 14:58> Date of Encounter: 09/27/18 Objective Vital Signs - Last 8 Hours Temp Pulse Resp BP Pulse Ox 09/27/18 14:51 98.2 F 85 18 144/71 96 09/27/18 11:21 98.2 F 85 18 139/70 94 Intake and Output 09/26/18 09/27/18 09/27/18 23:59 07:59 15:59 Intake Total 860 / 1960 1300 / 2220 920 / 2220 Output Total 690 / 1895 60 / 1100 1040 / 1100 Balance 170 / 65 1240 / 1120 -120 / 1120 Intake: IV Fluids 100 / 1200 1100 / 1300 200 / 1300 0.9 % Sodium Chloride 1,000 ML 1000 / 1000 @ 75 mls/hr IVC .[id number] [facility] Rx #:[id number] Zosyn 3.375 GM In 0.9 % Sodium 100 / 200 100 / 300 200 / 300 Chloride (Mini-Bag +) 100 ML @ 25 mls/hr IVPB Q8H [facility] Rx#: [id number] Oral 760 / 760 200 / 920 720 / 920 Output: Urine 450 / 600 0 / 1000 1000 / 1000 Wound Drainage 240 / 240 60 / 100 40 / 100 RLQ Abdomen 240 / 240 60 / 100 40 / 100 Other: Meal Dinner Lunch Percent of Meal Consumed 100% 85% Stool Size Smear Stool Color Brown # Urine Diapers 1 # Bowel Movement Diapers 1 Weight 71.74 kg Blood Glucose* 219 Patient Weight 09/27/18 23:59 Weight 71.74 kg - Labs 09/27/18 07:49 09/27/18 07:49 Diabetes panel 09/27/18 Range/Units 07:49 Sodium 135 L (136-145) mEq/L Potassium 3.7 (3.5-5.1) mEq/L Chloride 103 (98-107) mEq/L Carbon Dioxide 24 (23-29) mEq/L BUN 17 (8-23) mg/dL Creatinine 0.70 (0.60-1.20) mg/dL Glucose 92 (70-105) mg/dL Calcium 8.6 (8.6-10.3) mg/dL Calcium panel 09/27/18 Range/Units 07:49 Calcium 8.6 (8.6-10.3) mg/dL Pituitary panel 09/27/18 Range/Units 07:49 Sodium 135 L (136-145) mEq/L Potassium 3.7 (3.5-5.1) mEq/L Chloride 103 (98-107) mEq/L Carbon Dioxide 24 (23-29) mEq/L BUN 17 (8-23) mg/dL Creatinine 0.70 (0.60-1.20) mg/dL Glucose 92 (70-105) mg/dL Calcium 8.6 (8.6-10.3) mg/dL Adrenal panel 09/27/18 Range/Units 07:49 Sodium 135 L (136-145) mEq/L Potassium 3.7 (3.5-5.1) mEq/L Chloride 103 (98-107) mEq/L Carbon Dioxide 24 (23-29) mEq/L BUN 17 (8-23) mg/dL Creatinine 0.70 (0.60-1.20) mg/dL Glucose 92 (70-105) mg/dL Calcium 8.6 (8.6-10.3) mg/dL - Attending Attestation I examined this patient and my medical decision-making was reviewed with the Resident Physician. I agree with the documented findings, disposition and treatment plan as described except to the extent set forth below. The patient is seen and evaluated on morning rounds with the acute care surgery team and resident. She has had a tremendous response to surgery and is experiencing pain at a 1 out of 10 level. She is eating a regular diet. There is no evidence of bile drainage in the Masood-Lovell drain in the gallbladder fossa bed. We will continue IV antibiotics today. Oziel Valladares MD FACS
[2018-09-27 08:38] LABS: Basophils % 0.3 %; Hematocrit 35.9 % (35.3-44.9); Immature Granulocytes % 0.3 % (0-4); Lymphocytes # 1.6 K/mcL (0.6-4.6); Lymphocytes % 12.9 %; Mean Corpuscular HGB Conc 33.1 g/dL (31.6-35.5); Mean Corpuscular Hemoglobin 30.5 pg (28.0-33.3); Mean Corpuscular Volume 92.1 fL (83.0-100.0); Mean Platelet Volume 8.7 fL (9.4-12.4); Monocytes # 0.8 K/mcL (0.0-1.3); Monocytes % 6.3 %; Neutrophils # 9.9 K/mcL (1.6-8.9); Platelet Count 280 K/mcL (140-400); Red Cell Distribution Width 13.7 % (11.5-14.5); Segmented Neutrophils % 80.2 %
[2018-09-27] MEDS: amLODIPine 5 MG TABLET PO SCH (08:41)
[2018-09-27 08:54] LABS: Hemoglobin 11.9 g/dL (11.5-15.4)
[2018-09-27 08:58] LABS: BUN/Creatinine Ratio 24 (6-26); Blood Urea Nitrogen 17 mg/dL (8-23); Calcium 8.6 mg/dL (8.6-10.3); Carbon Dioxide 24 mEq/L (23-29); Chloride 103 mEq/L (98-107); Glucose 92 mg/dL (70-105); Osmolality,Calculated 281 (280-300); Potassium 3.7 mEq/L (3.5-5.1); Sodium 135 mEq/L (136-145); eGFR For Non-African Americans > 60 (> 60)
--- NOTE | 2018-09-27 10:51 | Electrocardiograph Report ---
[address] [address] Test Date: 2018-09-26 Pat Name: Gale Ferrari Department: 101 Room: 3A11 Gender: F Metal Milling Machine Operator: : 1940 Requested By: Sharee Pemberton Order Number: [id number] Reading MD: Danielle Bernabe Measurements Intervals [place] Rate: 76 P: 47 HI: 148 QRS: 40 QRSD: 101 T: 42 QT: 387 QTc: 417 Interpretive Statements SINUS RHYTHM Electronically Signed On 09-27-2018 10:49:42 EDT by Danielle Bernabe
[2018-09-27] MEDS ORDERED: Bisacodyl 10 MG RECTAL SUPPOSITORY RC PRN (16:37)
[2018-09-27] MEDS: hydrOXYzine pamoate 25 MG CAPSULE PO SCH (19:54)
[2018-09-28] MEDS: Piperacillin/Tazobactam 3.375 GM in 0.9 % Sodium Chloride Mini Bag 100 ML IVPB SCH ×3 (00:06→08:46)
[2018-09-28] MEDS: 0.9 % Sodium Chloride 1,000 ML IVC SCH ×2 (07:57→08:04)
--- NOTE | 2018-09-28 08:19 | Discharge Summary ---
Orders not resulted at time of discharge: Pending orders 09/28/18 08:10 CBC [Complete Blood Count] [HEME] Stat Date of Encounter: 09/28/18 Time of Encounter: 08:18 - Discharge Diagnosis (1) Postoperative bile leak Priority: Primary Status: Resolved General Surgery Exam Initial Vital Signs Temp Pulse Resp BP Pulse Ox 98.2 F 82 20 163/73 96 09/25/18 21:34 09/25/18 21:34 09/25/18 21:34 09/25/18 21:34 09/25/18 21:34 - General physical appearance well nourished, no distress, no pain - Neck trachea midline - Respiratory normal expansion, normal respiratory effort, clear to auscultation - Cardiovascular Cardiovascular exam: Present: RRR - Abdomen Abdomen general surgery: Present: bowel sounds present, soft, non tender, wound (LUCIA site unremarkable. SS drainage) - Integumentary Integumentary general surgery: Present: warm and dry, no abnormal pigmentation - Neurologic Present: CN 2-12 grossly intact, normal coordination, normal sensation - Musculoskeletal Present: normal gait, normal posture - Psychiatric Psychiatric general surgery: Present: appropriate, oriented to person, oriented to place, oriented to time, speech is normal, memory intact - Hospital Course Hospital course: Ms. Ferrari is a 78 year old female who presented on 09/26/2017 with complaints of abdominal pain. CT of her abdomen and pelvis with contrast noted a persistent abdominal and pelvic ascites increased from prior exam, and hepatobiliary scan noted of bile leak. She was taken to the operating room on 09/26/2018 where she underwent laparoscopic drainage of bile ascites with drain placement and closure of bile leak. Her abdominal symptoms have resolved. Her white blood cell count has normalized. Her hospital course has been uncomplicated. We will begin discharge planning to home with the LUCIA drain in place and follow-up in office in approximately one week. - Time Spent with Patient Total time spent providing and/or coordinating discharge services: - Discharge Medications Prescriptions: New Amoxicillin/Clavulanate [Augmentin] 875 mg PO BIDWM 7 Days #14 tablet Continued amLODIPine [Norvasc] 5 mg PO DAILY Aspirin 81 mg PO DAILY Potassium Chloride [Klor-Con] 20 meq PO DAILY hydrOXYzine pamoate [Hydroxyzine Pamoate] 25 mg PO HS Triamterene/HCTZ 37.5/25mg [Dyazide] 1 tab PO DAILY Vitamin B Complex [B Complex] 1 tab PO DAILY Vitamin A 10,000 unit PO DAILY Calcium Carb/Mag Oxide/Zinc Ox [Nzyyjkf-Mkqcrhpzb-Xxtx Caplet] 1 tab PO DAILY Lovastatin [Mevacor] 40 mg PO HS #30 tablet Polyethylene Glycol 3350 [MiraLAX] 17 gm PO DAILY #30 powd.pack Phenazopyridine [Pyridium] 100 mg PO TID PRN #15 tablet PRN Reason: dysuria Hydrocodone/Acetaminophen [[place] 5-325 Tablet] 1 tab PO Q4H Home Medications: Aspirin 81 mg PO DAILY 07/08/18 [History] Potassium Chloride [Klor-Con] 20 meq PO DAILY 07/08/18 [History] amLODIPine [Norvasc] 5 mg PO DAILY 07/08/18 [History] Triamterene/HCTZ 37.5/25mg [Dyazide] 1 tab PO DAILY 09/15/18 [History] hydrOXYzine pamoate [Hydroxyzine Pamoate] 25 mg PO HS 09/15/18 [History] Calcium Carb/Mag Oxide/Zinc Ox [Jrauwan-Tdewgojnf-Lbtm Caplet] 1 tab PO DAILY 09/20/18 [History] Vitamin A 10,000 unit PO DAILY 09/20/18 [History] Vitamin B Complex [B Complex] 1 tab PO DAILY 09/20/18 [History] Lovastatin [Mevacor] 40 mg PO HS #30 tablet 09/21/18 [Rx] Phenazopyridine [Pyridium] 100 mg PO TID PRN #15 tablet 09/21/18 [Rx] Polyethylene Glycol 3350 [MiraLAX] 17 gm PO DAILY #30 powd.pack 09/21/18 [Rx] Hydrocodone/Acetaminophen [[place] 5-325 Tablet] 1 tab PO Q4H 09/26/18 [History] Amoxicillin/Clavulanate [Augmentin] 875 mg PO BIDWM 7 Days #14 tablet 09/28/18 [Rx] Allergies/Adverse Reactions: Allergy/AdvReac Type Severity Reaction Status Date / Time enalapril Allergy Hives Verified 09/25/18 22:31 prednisone AdvReac Palpitation Verified 09/25/18 22:31 s Date of admission: 09/26/18 00:21 Primary care physician: Mark Friend MD Discharging clinician: Marcial Arrington (Shanon Talavera) Anticipated date of discharge: 09/28/18 Labs on day of discharge: Labs from last 24 hours 09/27/18 09/27/18 07:49 07:49 WBC 12.4 H RBC 3.90 Hgb 11.9 D Hct 35.9 MCV 92.1 MCH 30.5 MCHC 33.1 RDW 13.7 Plt Count 280 MPV 8.7 L Immature Gran % 0.3 Seg Neutrophils % 80.2 Lymphocytes % 12.9 Monocytes % 6.3 Eosinophils % 0.0 Basophils % 0.3 Neutrophils # 9.9 H Lymphocytes # 1.6 Monocytes # 0.8 Eosinophils # 0.0 Basophils # 0.0 Sodium 135 L Potassium 3.7 Chloride 103 Carbon Dioxide 24 BUN 17 Creatinine 0.70 Est GFR ( Amer) > 60 Est GFR (Non-Af Amer) > 60 BUN/Creatinine Ratio 24 Glucose 92 Calculated Osmolality 281 Calcium 8.6 - Impressions ITS Impressions Chest X-Ray 09/25/18 21:54 IMPRESSION: No acute cardiopulmonary process D/ / Shantanu Bob / Shantanu Bob Interpreting Provider: Shantanu Bob Bile Acid Absorption NM 09/26/18 07:20 IMPRESSION: Bile leak with some mild distention of the intrahepatic biliary ductal system. D/ / 09/26/2018 08:57:15 Fabián Ortiz MD / bcarter Interpreting Provider: Fabián Ortiz MD - Patient Status Disposition: Home, Self-Care Condition: Fair Functional capacity at discharge: independent ambulation Overall status at discharge: patient is progressing back to baseline - Discharge Instructions Instructions: Masood-Lovell Drain Care (DC), Laparoscopic Cholecystectomy (DC) Follow Up With: Mark Friend MD [Primary Care Provider] - Rand Talavera CNP [Advanced Practice Nurse] - 10/05/18 2:00 pm Additional Instructions: General Surgical Discharge Instructions 1. No pushing, pulling, or lifting greater than 15 lbs for 2 weeks. 2. You may shower beginning today, but no tub baths, soaking, or swimming for 2 weeks. 3. You may resume driving when you are off narcotics and are safe to react in a car. 4. Take ibuprofen every 8 hours for discomfort. If this does not relieve discomfort, you may take the as needed hydrocodone. Take narcotics as directed. Do not take more narcotics then directed and do not share your narcotics with any other person. Do not drink alcohol while on narcotics. 5. Take stool softeners (Colace) or a water based laxative (Miralax) while taking narcotics. You may hold for loose stools. 6. Report any fevers greater than 100.5F, increase abdominal discomfort, drainage that looks like pus, increased redness or pain at the surgical site, or any vomiting. 7. Report any pain in the calves, shortness of breath, or rapid heartbeat. 8. Follow-up in the office as directed. 9. If you were prescribed antibiotics, do not stop them without talking to your provider. Daily LUCIA Drain Care: 1. Remove dressings. Shower with antibacterial soap. 2. Do not let the LUCIA drain dangle from your body. Use the safety pin to secure to your clothing. Secure the LUCIA to a lanyard or other type of long necklace when you shower. 3. Replace drain gauze and taped to secure. 4. Record the output from your LUCIA bulb (at least once daily) on the form provided and bring this with you to your follow-up appointment. 5. Keep the LUCIA drain to suction (squeeze the bulb and replace the cap while squeezing). 6. Strip the lines twice daily (hold onto the line as close to the body as you can, then with the other hand push the contents of the line into the LUCIA bulb). Bring your drain record with you to your follow-up appointment. - Diet and Activity Activity: increase activity as tolerated Diet: advance to your usual diet
[2018-09-28 08:24] LABS: Basophils % 0.6 %; Hemoglobin 11.9 g/dL (11.5-15.4); Immature Granulocytes % 0.3 % (0-4); Lymphocytes # 1.6 K/mcL (0.6-4.6); Lymphocytes % 22.3 %; Mean Corpuscular HGB Conc 33.1 g/dL (31.6-35.5); Mean Corpuscular Hemoglobin 30.7 pg (28.0-33.3); Mean Platelet Volume 8.3 fL (9.4-12.4); Monocytes # 0.5 K/mcL (0.0-1.3); Monocytes % 7.1 %; Platelet Count 289 K/mcL (140-400); Red Blood Count 3.87 M/mcL (3.82-4.97); Segmented Neutrophils % 69.7 %
[2018-09-28] MEDS: amLODIPine 5 MG TABLET PO SCH (08:47)
[2018-09-28] MEDS ORDERED: Aspirin 81 MG TAB.CHEW PO SCH (09:00)
[2018-09-28 10:26] VITALS: BP 138/69
--- NOTE | 2018-09-30 15:49 | Electrocardiograph Report ---
[place] [address] Test Date: 2018-09-25 Pat Name: Gale Ferrari Department: EXAM3 Room: 3A11 Gender: F Emergency Department Physician: : [id number] Requested By: Lavelle Washington Order Number: [id number] Reading MD: Urbano Duarte Measurements Intervals [place] Rate: 78 P: 76 ID: [id number] QRS: 60 QRSD: 97 T: 58 QT: 372 QTc: 424 Interpretive Statements Sinus rhythm Electronically Signed On 09-30-2018 15:48:07 EDT by Urbano Duarte
== END 2018-09-28 13:30 | disposition home or self-care (01) ==
LOC: EMEROOARM 21:07 → 3ANU 21:07
PROVIDERS: ADMIT Surgery; ATTEND Surgery